=== PATIENT | female | born 1985 | race Caucasian/White ===

== ENCOUNTER 2018-12-10 11:48 | Emergency (ER) | payer OTHER ==
[~2018-12-10] VITALS: Ht 167.6 cm; Wt 89.4 kg
[2018-12-10 11:55] VITALS: BP 116/93
[2018-12-10 12:26] VITALS: BP 116/93
== END 2018-12-10 12:27 | disposition home or self-care (01) ==
LOC: MED 11:48
DX: J30.9 Allergic rhinitis, unspecified (principal)
CPT/HCPCS: 99282